=== PATIENT | female | born 1965 | race Caucasian/White ===

== ENCOUNTER 2017-04-26 11:22 | Emergency (ER) | payer OTHER ==
[2017-04-26 13:41] VITALS: BP 124/82
--- NOTE | 2017-04-26 13:53 | UC ---
Throat Pain/Nasal [place] HPI - HPI Summary HPI Summary: sinus pain and pressure x 2 weeks + nasal congestion , pnd, sore throat bilateral ear pain , mild cough no fever, no chills - History of Current Complaint Chief Complaint: UCRespiratory Stated Complaint: QUINN/SINUS/EAR COMPLAINT Time Seen by Provider: 04/26/17 13:44 Hx Obtained From: Patient Hx Last Menstrual Period: age 32yrs Onset/Duration: Gradual Onset, Lasting Weeks - 2, Still Present Severity: Moderate Pain Intensity: 9 Cough: None Associated Signs & Symptoms: Positive: Sinus Discomfort, Nasal Discharge, Fever. Negative: Rash - Allergies/Home Medications Allergies/Adverse Reactions: Allergies Allergy/AdvReac Type Severity Reaction Status Date / Time environmental Allergy Eyes Uncoded 04/26/17 13:30 Itchy/Swollen/Red/Watery unknown food allergy Allergy Difficulty Uncoded 04/26/17 13:30 Breathing/Wheezing Home Medications: Home Medications Acetaminophen TAB* [Tylenol TAB*] 975 mg PO Q4H PRN 04/26/17 [History Confirmed 04/26/17] Ibuprofen TAB* [Motrin TAB* 800 MG] 800 mg PO Q6H PRN 04/26/17 [History Confirmed 04/26/17] PMH/Surg Hx/FS Hx/Imm Hx Endocrine History: Thyroid Disease Respiratory History: Bronchitis - Surgical History Surgical History: Yes Surgery Procedure, Year, and Place: thyroid. appy - Social History Alcohol Use: Rare Substance Use Type: None Smoking Status (MU): Heavy Every Day Tobacco Smoker Type: Cigarettes Amount Used/How Often: 1 pack daily Review of Systems Constitutional: Negative Skin: Negative Eyes: Negative ENT: Sore Throat, Nasal Discharge, Sinus Congestion, Sinus Pain/Tenderness Respiratory: Cough Is Patient Immunocompromised?: No All Other Systems Reviewed And Are Negative: Yes Physical Exam Triage Information Reviewed: Yes Appearance: Well-Appearing, No Pain Distress, Well-Nourished Vital Signs: Initial Vital Signs Temp 98.1 F 04/26/17 13:32 Pulse 66 04/26/17 13:32 BP 124/82 04/26/17 13:32 Pulse Ox 100 04/26/17 13:32 Vital Signs Reviewed: Yes Eye Exam: Normal Eyes: Positive: Conjunctiva Clear ENT: Positive: Normal ENT inspection, Hearing grossly normal, Pharyngeal erythema, Nasal congestion, Nasal drainage, TMs normal, Sinus tenderness Neck exam: Normal Neck: Positive: Supple, Nontender, No Lymphadenopathy Respiratory: Positive: Chest non-tender, Lungs clear, Normal breath sounds Cardiovascular: Positive: RRR, No Murmur, Pulses Normal Skin Exam: Normal Throat Pain/Nasal Course/Dx - Differential Dx/Diagnosis Provider Diagnoses: sinusitis Discharge - Discharge Plan Condition: Stable Disposition: HOME Prescriptions: Amoxicillin/Clavulanate TAB* [Augmentin TAB 875*] 875 mg PO BID #20 tab Fluticasone NASAL SPRAY 50MCG* [Flonase NASAL SPRAY 50MCG*] 2 spray BOTH NARES DAILY #1 btl Patient Education Materials: Sinusitis (ED) Referrals: No Primary Care Phys,NOPCP [Primary Care Provider] - If Needed
== END 2017-04-26 13:53 | disposition home or self-care (01) ==
LOC: UCCORT 11:22
DX: J32.9 Chronic sinusitis, unspecified (principal); F17.210 Nicotine dependence, cigarettes, uncomplicated
CPT/HCPCS: 99202; G0463

== ENCOUNTER 2018-01-08 10:23 | Emergency (ER) | payer OTHER ==
--- NOTE | 2018-01-08 12:11 | UC ---
General HPI - HPI Summary HPI Summary: 52 yo female c/o cough x approx 1 month. Symptoms not better. Has been seen by PCP x 2, told that she had an ear infection. Has taken a course of augmentin and completed a course of cephalexin. Completed a course of steroids as well. Per pharmacist (via telephone) 12/21/17: ciprofloxacin x 10 days (bid), prednisone taper #20 (taper apprx 5 days ) 12/13/17: mucinex ER 600 x 1 month, combivent inhaler, augmentin x 10 days Sputum ranges in varies in color, currently yellow-brown. No hemoptysis. Hurts to cough. Feels tired, achy all over. + sinus congestion. No rash. Has an upcoming wedding, and is concerned that she is not better. - History of Current Complaint Stated Complaint: COUGH,CONGESTION Time Seen by Provider: 01/08/18 12:10 Hx Obtained From: Patient Hx Last Menstrual Period: age 32yrs - Allergy/Home Medications Allergies/Adverse Reactions: Allergies Allergy/AdvReac Type Severity Reaction Status Date / Time environmental Allergy Eyes Uncoded 04/26/17 13:30 Itchy/Swollen/Red/Watery unknown food allergy Allergy Difficulty Uncoded 04/26/17 13:30 Breathing/Wheezing Home Medications: Home Medications Cetirizine* [ZyrTEC 10 MG TAB*] 10 mg PO DAILY 01/08/18 [History Confirmed 01/08] PMH/Surg Hx/FS Hx/Imm Hx Previously Healthy: No - see hpi - Surgical History Surgical History: Yes Surgery Procedure, Year, and Place: thyroid. appy - Family History Known Family History: Positive: Cardiac Disease - Social History Alcohol Use: Rare Substance Use Type: None Smoking Status (MU): Heavy Every Day Tobacco Smoker Type: Cigarettes Amount Used/How Often: 1 pack daily Review of Systems Constitutional: Fatigue Skin: Negative - see hpi Eyes: Other - circles under eyes, puffy lids ENT: Nasal Discharge, Sinus Congestion, Other - see hpi Respiratory: Cough - see hpi Cardiovascular: Other - see hpi Gastrointestinal: Negative Genitourinary: Negative Motor: Negative Neurovascular: Negative Musculoskeletal: Negative Neurological: Negative Psychological: Negative Is Patient Immunocompromised?: No All Other Systems Reviewed And Are Negative: Yes Physical Exam Triage Information Reviewed: Yes Appearance: Well-Nourished - looks tired. nad. Vital Signs Reviewed: Yes Eye Exam: Other - perrla eomi, dark circles under eyes. conj pink. ENT: Positive: Pharyngeal erythema - mild post pharyngeal redness, uvula midline. No sores / exudates., Nasal congestion, TM dull, Other - L EAC + greyish drainage. TM partially obscured d/t drainage, dark frances in color. Neck exam: Normal Neck: Positive: Supple Respiratory Exam: Other - BS equal. + rhonchorus cough. No stridor. Occas exp wheeze. Respiratory: Positive: No accessory muscle use, Respiratory distress Cardiovascular Exam: Normal Cardiovascular: Positive: RRR, No Murmur, Pulses Normal, Brisk Capillary Refill Abdominal Exam: Normal Abdomen Description: Positive: Nontender Musculoskeletal Exam: Normal - gait slow, steady. Distal exts warm. +evidence of chronic venous insuff changes (varicosities, tr edema, scattered hemosiderosis). Neurological Exam: Normal - grossly nonfocal Psychological Exam: Normal - conversing easily and appropriately Skin Exam: Normal - no visible or reported rash nondiaphoretic Course/Dx - Course Course Of Treatment: CXR - reviewed with pt (see [facility]). COPD, o/w NAD. DuoNeb x 1 in [facility]. Does not currently have nebulizer but thinks her mom can bring her one. Reports that she does have scripts for nebulizer at home. (?). She may benefit from a nebulizer at home - will check with her PCP. Aware of need to schedule f/u PCP this week. Reviewed coa / tx plan. Questions as posed answered to the best of my ability. To Emergency Department for worse or new problems. - Differential Dx - Multi-Symptom Provider Diagnoses: Bronchitis. COPD. Otitis Externa Left Discharge - Sign-Out/Discharge Documenting (check all that apply): Patient Departure All imaging exams completed and their final reports reviewed: Yes - Discharge Plan Condition: Improved Disposition: HOME Prescriptions: Albuterol 2.5MG/3ML (0.083%)* [Ventolin 2.5 MG/3 ML NEB.ANUSHA*] 2.5 mg INH Q6H #1 box Albuterol HFA INHALER* [Ventolin HFA Inhaler*] 1 - 2 puff INH Q4H PRN #1 mdi PRN Reason: Wheezing Clarithromycin TAB* [Biaxin 500 MG TAB*] 500 mg PO BID #20 tab Fluconazole [Diflucan 150 MG (NF)] 150 mg PO DAILY #2 tab predniSONE TAB* [Deltasone 10 MG TAB*] 10 mg PO DAILY #20 tab Patient Education Materials: Otitis Externa (ED), Acute Bronchitis (ED), COPD ( Chronic Obstructive Pulmonary Disease) (ED), How to Use a Nebulizer (ED), Bronchospasm (ED) Referrals: Ivan Calabrese [Primary Care Provider] - Additional Instructions: Please follow up with your primary care physician THIS WEEK for recheck. Please go to the Emergency Department for any worse or new problems. Blood work today (see attached) - please follow up with your doctor. Ear culture sent today as well. - Billing Disposition and Condition Condition: IMPROVED Disposition: Home
[2018-01-08 12:16] VITALS: BP 129/81
[2018-01-08] MEDS ORDERED: Albuterol/Ipratropium NEB.SOL* Albuterol 2.5 MG/Ipratropium 0.5 MG 3 ML INH ONE (12:52)
--- NOTE | 2018-01-08 13:05 | RAD ---
HISTORY: ongoing cough, bronchitis, sob COMPARISONS: None VIEWS: 4: Frontal dual-energy and lateral views of the chest. FINDINGS: CARDIOMEDIASTINAL SILHOUETTE: The cardiomediastinal silhouette is normal. MING: The ming are normal. PLEURA: The costophrenic angles are sharp. No pleural abnormalities are noted. LUNG PARENCHYMA: There is hyperinflation with flattening of the diaphragm and expansion of the AP diameter of the chest. ABDOMEN: The upper abdomen is clear. There is no subphrenic gas. BONES AND SOFT TISSUES: No bone or soft tissue abnormalities are noted. OTHER: None. IMPRESSION: HYPERINFLATION, CONSISTENT WITH COPD. NO ACTIVE CARDIOPULMONARY DISEASE.
[2018-01-08] MEDS ORDERED: predniSONE TAB* 20 MG PO ONE (13:56)
[2018-01-09 10:56] LABS: ABS Basophils 0 10^3/ul (0-0.2); ABS Eosinophils 0.1 10^3/ul (0-0.6); ABS Lymphocytes 1.3 10^3/ul (1.0-4.8); ABS Monocytes 0.5 10^3/ul (0-0.8); ABS Neutrophils 5.1 10^3/ul (1.5-7.7); ABS Nucleated RBC 0 10^3/ul; Eosinophil % 1.5 % (0-6); Hematocrit 40 % (35-47); Hemoglobin 13.6 g/dl (12.0-16.0); Lymphocyte % 18.8 % (25-47); Mean Corpuscular HGB Conc 34 g/dl (31-36); Mean Corpuscular Hemoglobin 31 pg (27-31); Mean Corpuscular Volume 92 fL (80-97); Nucleated Red Blood Cells % 0.3; Platelet Count 259 10^3/ul (150-450); Red Blood Count 4.39 10^6/ul (4.00-5.40); Red Cell Distribution Width 13 % (10.5-15)
[2018-01-09 11:08] LABS: EGFR Non-African American 112.3 (>60)
--- NOTE | 2018-01-11 07:25 | UC ---
- Progress Note Progress Note: Left ear culture came back from January 08, 2018 showing 3+ gram-positive cocci and 1+ yeast. In reviewing the record of that date the patient was treated with Diflucan by mouth. I do not see a prescription for antibiotic eardrops. I sent a prescription in for Cortisporin otic to her pharmacy. Nursing to contact the patient and let her know to start the ear drops and if she is not improved to get rechecked. Discharge - Sign-Out/Discharge Documenting (check all that apply): Patient Departure All imaging exams completed and their final reports reviewed: Yes - Discharge Plan Condition: Improved Disposition: HOME Prescriptions: Albuterol 2.5MG/3ML (0.083%)* [Ventolin 2.5 MG/3 ML NEB.ANUSHA*] 2.5 mg INH Q6H #1 box Albuterol HFA INHALER* [Ventolin HFA Inhaler*] 1 - 2 puff INH Q4H PRN #1 mdi PRN Reason: Wheezing Clarithromycin TAB* [Biaxin 500 MG TAB*] 500 mg PO BID #20 tab Fluconazole [Diflucan 150 MG (NF)] 150 mg PO DAILY #2 tab Neomyc/Polym/HC 1% OTIC SUSP* [Cortisporin Otic Susp 1%*] 4 drop LEFT EAR QID # 1 btl predniSONE TAB* [Deltasone 10 MG TAB*] 10 mg PO DAILY #20 tab Patient Education Materials: Otitis Externa (ED), Acute Bronchitis (ED), COPD ( Chronic Obstructive Pulmonary Disease) (ED), How to Use a Nebulizer (ED), Bronchospasm (ED) Referrals: Ivan Calabrese [Primary Care Provider] - Additional Instructions: Please follow up with your primary care physician THIS WEEK for recheck. Please go to the Emergency Department for any worse or new problems. Blood work today (see attached) - please follow up with your doctor. Ear culture sent today as well. - Billing Disposition and Condition Condition: IMPROVED Disposition: Home
== END 2018-01-08 14:20 | disposition home or self-care (01) ==
LOC: UCCORT 10:23
DX: J40 Bronchitis, not specified as acute or chronic (principal); J44.9 Chronic obstructive pulmonary disease, unspecified; H60.92 Unspecified otitis externa, left ear; F17.210 Nicotine dependence, cigarettes, uncomplicated
CPT/HCPCS: 36415; 71046; 80048; 85025; 86140; 87070; 87205; 87640; 87641; 99212; A9270-GY; G0463; J7512